=== PATIENT | male | born 1965 | race Caucasian/White ===

== ENCOUNTER 2016-11-03 09:41 | Emergency (ER) | payer OTHER ==
[2016-11-03 09:51] VITALS: BP 154/90; PULSE 99; TEMP 98.2; BMI 29.9
[2016-11-03] MEDS ORDERED: BACITRACIN 15 GM TUBE TOPICAL OINTMENT ONE (10:11)
--- NOTE | 2016-11-03 10:20 | PDOC ---
History of Present Illness - General Chief Complaint: Poison [place],Poison Walter Exposure Stated Complaint: POISON WALTER -[facility] Time Seen by Provider: 11/03/16 10:17 History Source: Patient Exam Limitations: No Limitations - History of Present Illness Initial Comments: 11/03/16 11:09 Chief complaint: ABRASION TO RT. UPPER MEDIAL ARM, CONTACT WITH POISON WALTER RT. 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 Officer denies any significant medical history. Patient is up-to-date with tetanus. He denies any difficulty breathing or swallowing. 11/03/16 11:12 11/03/16 11:12 Timing/Duration: resolved prior to arrival Severity: mild Associated Symptoms: reports: denies symptoms Past History - Past Medical History Allergies/Adverse Reactions: Allergies Allergy/AdvReac Type Severity Reaction Status Date / Time No Known Allergies Allergy Verified 11/03/16 09:51 Home Medications: Ambulatory Orders NK [No Known Home Medication] 09/16/14 Suicide Attempt (Hx): No Other medical history: NONE - Immunization History Immunization Up to Date: Yes - Psycho/Social/Smoking Cessation Hx Anxiety: No Suicidal Ideation: No Smoking Status: No Smoking History: Current every day smoker Have you smoked in the past 12 months: Yes Number of Cigarettes Smoked Daily: 10 Information on smoking cessation initiated: No 'Breaking Loose' booklet given: 09/21/14 Hx Alcohol Use: No Drug/Substance Use Hx: No Substance Use Type: None Review of Systems - Review of Systems Able to Perform ROS?: Yes Constitutional: No: Symptoms Reported HEENTM: No: Symptoms Reported Respiratory: No: Symptoms reported Cardiac (ROS): No: Symptoms Reported ABD/GI: No: Symptoms Reported : No: Symptoms Reported Musculoskeletal: No: Symptoms Reported Integumentary: Yes: Other (ABRASION RT. UPPER MEDIAL ARM, CONTACT WITH POISON WALTER RT. MEDIAL WRIST ) Neurological: No: Symptoms reported *Physical Exam - Vital Signs Last Vital Signs Temp Pulse Resp BP Pulse Ox 98.2 F 99 H 20 154/90 96 11/03/16 09:48 11/03/16 09:48 11/03/16 09:48 11/03/16 09:48 11/03/16 09:48 - Physical Exam General Appearance: Yes: Appropriately Dressed Comments:: 11/03/16 10:59 RADIAL PULSE 4 + RIGHT Extremity: positive: Normal Capillary Refill, Normal Range of Motion (rt. shoulder, rt. elbow, rt. wrist ) Integumentary: positive: Other (ABRASION RT. UPPER MEDIAL ARM APPROX 3 CM X 2 CM , RT. 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 Officer denies any significant medical history. Patient is up-to-date with tetanus. He denies any difficulty breathing or swallowing. right upper arm abrasion Exposure to poison walter and right wrist area Plan: Cleansed abrasion with betadine & NS 0.9% dried areas and apply bacitracin ointment and Band-Aid He was instructed to buy hydrocortisone cream 1% and apply it to reddened area on right wrist *DC/Admit/Observation/Transfer Diagnosis at time of Disposition: Poison walter, Abrasion, upper arm w/o infection - Discharge Dispostion Disposition: HOME Condition at time of disposition: Stable - Patient Instructions Additional Instructions: You may purchast hydrocortisone 1 % cream and apply to reddened area on right wrist Cleanse abrasion on right upper arm with antibacterial soap and water and apply a tiny amount of bacitracin ointment twice daily Return to emergency room if symptoms worsen or new symptoms develop Patient voiced understanding of discharge instructions and all questions were answered
== END 2016-11-03 10:23 | disposition home or self-care (01) ==
LOC: JERFT 09:41
DX: S40.811A Abrasion of right upper arm, initial encounter (principal); W22.8XXA Striking against or struck by other objects, initial encounter; W22.01XA Walked into wall, initial encounter; Y93.89 Activity, other specified; Y92.89 Other specified places as the place of occurrence of the external cause; L23.7 Allergic contact dermatitis due to plants, except food
CPT/HCPCS: 99281-25